=== PATIENT | male | born 1980 | race Caucasian/White ===

== ENCOUNTER 2016-06-01 14:28 | Emergency (ER) | payer OTHER ==
[~2016-06-01] VITALS: Ht 180.3 cm; Wt 92.0 kg
[2016-06-01 14:30] VITALS: TEMP 36.8; Ht 180.3 cm; Wt 92.0 kg
[2016-06-01 15:13] VITALS: O2SAT 100
[2016-06-01 15:31] LABS: BASO % 0.9 %; BASO ABS # 0.07 K/uL (0-0.2); COMPLETE YES; EOS % 0.8 %; IG% 0.3 %; LYMPH % 32.1 %; LYMPH ABS # 2.53 K/uL (1.2-3.4); MEAN CELL VOLUME 88.1 fL (80-100); MEAN CORPUSCULAR HEMOGLOBIN 31.7 pg (25-34); MEAN PLATELET VOLUME 11.2 fL (7.4-10.4); MONO % 5.6 %; NEUT % 60.3 %; PLATELET COUNT 219 K/uL (130-400); RED BLOOD COUNT 5.11 M/uL (4.7-6.1); WHITE BLOOD COUNT 7.88 K/uL (4.8-10.8)
[2016-06-01 15:37] LABS: BUN/CREATININE RATIO 9.4 (10-20); CALCIUM 9.1 mg/dl (8.5-10.1); MAGNESIUM 2.5 mg/dl (1.8-2.4); POTASSIUM 3.6 mmol/L (3.5-5.1)
--- NOTE | 2016-06-01 15:38 | EMERGENCY ROOM VISIT NOTE ---
History First contact with patient: 15:05 Chief Complaint: RESPIRATORY PROBLEMS Stated Complaint: SHALLOW BREATHING, TIGHT CHEST, LT SHOULDER PAIN Nursing Triage Summary: woke up this morning having troubles breathing. pain in left shoulder. body aches. family has recently had stomach flu recently stopped smoking. had wisdom teeth extracted 3-4 weeks ago History of Present Illness The patient is a 36 year old male who presents to the Emergency Department by private vehicle for evaluation of his shallow breathing, difficulty with breathing, LEFT shoulder pain, and tingling into the bilateral hands and fingers. The patient reports that he developed the symptoms of shallow breathing shortly after scolding his child for not eating his breakfast. He reports that while at work he noticed persistent shallow breathing as well as occasional episodes of pain into the LEFT shoulder. He has had some mild shortness of breath. He hasn't noticed any symptoms that have worsened on exertion, however. After the symptoms had been ongoing for a while, the patient has noticed numbness and tingling into the bilateral hands and fingers. He has not experienced this previously. The patient denies any pain at this time rating his discomfort a 0/10. He reports a history of GERD for which he is treated with omeprazole. He has no history of hypertension or coronary artery disease. His mother did pass away from a heart attack in April 2015 at the age of 61. He denies any other family history of cardiac disease otherwise. The patient denies any headaches, dizziness, neck pain/stiffness, palpitations, nausea, vomiting, hematochezia, melena, hematuria, or dysuria. Review of Systems A complete 10-point Review of Systems was discussed with the patient, with pertinent positives and negatives listed in the History of Present Illness. All remaining Review of Systems questions can be considered negative unless otherwise specified. Social History Smoking Status: Current Every Day Smoker Smokeless Tobacco Use: No Alcohol Use: occasionally Drug Use: none Marital Status: Housing Status: lives with family Occupation Status: employed Current/Historical Medications Scheduled Omeprazole (Prilosec), 20 MG PO DAILY Allergies Coded Allergies: No Known Allergies (Unverified , 06/01/16) Physical Exam Vital Signs Date Time Temp Pulse Resp B/P Pulse Ox O2 Delivery O2 Flow Rate FiO2 06/01/16 18:16 67 16 135/93 95 Room Air 06/01/16 16:38 71 16 136/88 98 Room Air 06/01/16 15:26 71 18 148/102 100 Room Air 06/01/16 15:16 91 06/01/16 15:13 100 Room Air 06/01/16 14:33 99 Room Air 06/01/16 14:30 36.8 95 18 150/103 99 Room Air Pain Rating (0-10): 0 Physical Exam VITAL SIGNS - Vital signs and nursing notes were reviewed. GENERAL - 36-year-old male appearing his stated age who is in no acute distress. Communicates well with provider and answers questions appropriately. LUNGS - Chest wall symmetric without accessory muscle use, intercostals retractions, or central cyanosis. Normal vesicular breath sounds CTA B/L. No wheezes, rales, or rhonchi appreciated. CARDIAC - RRR with S1/S2. No murmur, rubs, or gallops appreciated. No reproducible tenderness to palpation appreciated over the anterior chest wall. ABDOMEN - Abdominal contour flat and without pulsations or visible masses. BS normoactive all four quadrants. No tenderness, palpable masses, hepatosplenomegaly, or ascites noted. EXTREMITIES - No clubbing or peripheral cyanosis. No pretibial edema present. +3 /5 radial and dorsalis pedis pulses palpated throughout. +5/5 strength noted in UE/LE bilaterally. NEUROLOGIC - Cranial nerves II through XII grossly intact. Sensory intact to light touch throughout. PSYCH - A&Ox3 and cooperates fully with examiner. Pt is very pleasant and interacts well with examiner. Medical Decision & Procedures ER Provider Diagnostic Interpretation: Radiological imaging and reports were reviewed by myself. Radiologist's Interpretation as follows: CHEST ONE VIEW PORTABLE CLINICAL HISTORY: cp dyspnea COMPARISON STUDY: No previous studies for comparison. FINDINGS: The bones soft tissues and hemidiaphragms are normal. The cardiomediastinal silhouette is normal. The lungs are clear. The pulmonary vasculature is normal. IMPRESSION: Negative chest. Laboratory Results 06/01/16 15:13 Red Blood Count 5.11, Mean Corpuscular Volume 88.1, Mean Corpuscular Hemoglobin 31.7, Mean Corpuscular Hemoglobin Concent 36.0, Mean Platelet Volume 11.2, Neutrophils (%) (Auto) 60.3, Lymphocytes (%) (Auto) 32.1, Monocytes (%) (Auto) 5.6, Eosinophils (%) (Auto) 0.8, Basophils (%) (Auto) 0.9, Neutrophils # (Auto) 4.76, Lymphocytes # (Auto) 2.53, Monocytes # (Auto) 0.44, Eosinophils # (Auto) 0.06, Basophils # (Auto) 0.07 06/01/16 15:13 Test 06/01/16 15:13 06/01/16 15:28 06/01/16 17:10 White Blood Count 7.88 K/uL (4.8-10.8) Red Blood Count 5.11 M/uL (4.7-6.1) Hemoglobin 16.2 g/dL (14.0-18.0) Hematocrit 45.0 % (42-52) Mean Corpuscular Volume 88.1 fL (80-100) Mean Corpuscular Hemoglobin 31.7 pg (25-34) Mean Corpuscular Hemoglobin Concent 36.0 g/dl (32-36) Platelet Count 219 K/uL (130-400) Mean Platelet Volume 11.2 fL (7.4-10.4) Neutrophils (%) (Auto) 60.3 % Lymphocytes (%) (Auto) 32.1 % Monocytes (%) (Auto) 5.6 % Eosinophils (%) (Auto) 0.8 % Basophils (%) (Auto) 0.9 % Neutrophils # (Auto) 4.76 K/uL (1.4-6.5) Lymphocytes # (Auto) 2.53 K/uL (1.2-3.4) Monocytes # (Auto) 0.44 K/uL (0.11-0.59) Eosinophils # (Auto) 0.06 K/uL (0-0.5) Basophils # (Auto) 0.07 K/uL (0-0.2) RDW Standard Deviation 41.1 fL (36.4-46.3) RDW Coefficient of Variation 12.8 % (11.5-14.5) Immature Granulocyte % (Auto) 0.3 % Immature Granulocyte # (Auto) 0.02 K/uL (0.00-0.02) Prothrombin Time 10.0 SECONDS (9.0-12.0) Prothromb Time International Ratio 0.9 (0.9-1.1) Activated Partial Thromboplast Time 29.0 SECONDS (21.0-31.0) Partial Thromboplastin Ratio 1.1 Anion Gap 10.0 mmol/L (3-11) Est Creatinine Clear Calc Drug Dose 119.5 ml/min Estimated GFR () 112.5 Estimated GFR (Non- 97.1 BUN/Creatinine Ratio 9.4 (10-20) Calcium Level 9.1 mg/dl (8.5-10.1) Magnesium Level 2.5 mg/dl (1.8-2.4) Total Bilirubin 0.2 mg/dl (0.2-1) Aspartate Amino Transf (AST/SGOT) 20 U/L (15-37) Alanine Aminotransferase (ALT/SGPT) 70 U/L (12-78) Alkaline Phosphatase 58 U/L (45-117) Total Creatine Kinase 100 U/L (39-308) Creatine Kinase MB 0.7 ng/ml (0.5-3.6) Creatine Kinase MB Ratio 0.7 (0-3.0) Total Protein 7.7 gm/dl (6.4-8.2) Albumin 4.2 gm/dl (3.4-5.0) Globulin 3.5 gm/dl (2.5-4.0) Albumin/Globulin Ratio 1.2 (0.9-2) Lipase 235 U/L (73-393) Thyroid Stimulating Hormone (TSH) 1.890 uIu/ml (0.300-4.500) Bedside D-Dimer 75 ng/mlFEU (0-450) Bedside Troponin I 0.000 ng/ml (0-0.045) Medications Administered Medications (Trade) Dose Ordered Sig/Brijesh Route Start Time Stop Time Status Last Admin Dose Admin Lorazepam (Ativan Tab) 0.5 mg NOW STAT SL 06/01/16 16:22 06/01/16 16:23 DC 06/01/16 16:38 0.5 MG Procedure Patient was placed on the clinical research monitor and monitored throughout the entire extent of their stay. In addition, the patient's pulse oximetry was monitored throughout the entire stay. Any abnormalities or aberrancies were addressed appropriately. ECG Indication: chest pain, SOB/dyspnea Rate (beats per minute): 80 Rhythm: sinus with SA Findings: no acute ischemic change, no ectopy Comparison ECG Date: no prior available ED Course Patient was seen and evaluated by myself. Labs were drawn, saline lock in place. EKG and chest x-rays were obtained. Laboratory results demonstrate no acute leukocytosis, worrisome anemia, or bandemia. The patient has no significant electrolyte abnormalities. Cardiac enzymes are negative. EKG and chest x-rays are unremarkable. Troponin is negative. D-dimer was not elevated. On review the patient, he reports that he still has occasional tingling in his fingers and feet as well as some tightness in his chest. I had a lengthy conversation with the patient and his regarding symptoms. He was offered Ativan as well as repeat troponin. He did well with the Ativan and reports that he no longer has the tingling in the hands or feet. He does say that he still has some heaviness in his chest, however. His repeat troponin is completely negative. Laboratory results and imaging studies were reviewed with the patient who acknowledges understanding. He was encouraged to make a follow- up appointment later this week with his primary care provider. He was educated on worrisome symptoms for return visit to the emergency department. Patient discharged home afebrile and in good condition. Medical Decision Given the patient's presentation and stated complaints, I did elect to perform the above-mentioned workup. The patient presents today after experiencing some tightness in his chest as well as shallow breathing. He has no fever. He has not been ill recently. There is no leukocytosis. Chest x-rays complete unremarkable. EKG demonstrates no acute findings. He does admit to a moderate amount of caffeine use. In addition, he is complaining of paresthesias in the hands and feet. This did resolve after an oral dose of Ativan. I suspect that the patient may be experiencing a sensation of chest heaviness which has subsequently resulted in some anxiety component to his symptoms. He admits to significant amount of stress recently. His cardiac enzymes are negative 2. This makes cardiac etiology much less likely. His d-dimer was not elevated making PE much less likely as well. Certainly this may be an early onset of a viral upper respiratory infection as well. This was discussed with the patient a great length as well. The patient was educated on all these findings. He was comfortable with disposition and plan. He'll follow-up with his primary care provider this week for recheck. He will return to the emergency department in the setting of any changing or worsening symptoms. Patient discharged home afebrile and in good condition. In the evaluation and treatment of this patient, the following differential diagnoses were considered: HI, ASC, Dysrhythmia, Angina, Mediastinitis, GERD, Esophagitis, PE, Pneumonia, Bronchitis, Costochondritis, Rib Fracture, Zoster. Impression Primary Impression: Chest tightness Additional Impressions: Shallow breathing, Carpopedal spasm Departure Information Dispostion Home / Self-Care Condition GOOD Referrals Tone Knox M.D.([facility]) (PCP) Patient Instructions A Signature Page, [facility] Additional Instructions You have been treated in the Emergency Department for your Non-Cardiac Chest Pain. Laboratory results and Imaging Studies have ruled out any cardiac or pulmonary cause of your chest pain. For pain control, you can use the following [id number] medicines (if >12 yo): - Regular strength (325mg/tab) Tylenol (acetaminophen) 2 tabs every 4-6 hours as needed. Do not exceed 12 tablets in a 24 hour period. Avoid taking more than 4 grams (4000 mg) of Tylenol per day. This includes any other sources of acetaminophen you may take on a regular basis. - Regular strength (200 mg/tab) Advil (ibuprofen) 1-2 tabs every 4-6 hours as needed. Do not exceed a dose of 3200 mg per day. You should schedule a follow-up appointment with your Primary Care Provider in 2 -3 days for further evaluation from today's Emergency Department visit. Return to the Emergency Department if your current symptoms worsen despite treatment course outlined above, or if you develop any of the following symptoms : worsening chest pain, associated jaw/arm pain, nausea, dizziness, shortness of breath, bloody cough, or fainting.
[2016-06-01 15:39] LABS: INR 0.9 (0.9-1.1); PARTIAL THROMBOPLASTIN RATIO 1.1
[2016-06-01] MEDS ORDERED: PRLSR20 PO (15:40)
--- NOTE | 2016-06-01 15:44 | DIAGNOSTIC IMAGING REPORT ---
CHEST ONE VIEW PORTABLE CLINICAL HISTORY: cp dyspnea COMPARISON STUDY: No previous studies for comparison. FINDINGS: The bones soft tissues and hemidiaphragms are normal. The cardiomediastinal silhouette is normal. The lungs are clear. The pulmonary vasculature is normal. IMPRESSION: Negative chest. Electronically signed by: Kyle Dior M.D. 06/01/2016 3:42 PM
[2016-06-01 15:48] LABS: ALB/GLOB RATIO 1.2 (0.9-2); CKMB/CK RATIO 0.7 (0-3.0); THYROID STIMULATING HORMONE 1.89 uIu/ml (0.300-4.500)
[2016-06-01] MEDS ORDERED: LORAZEPAM 0.5 MG TAB SL STA (16:22)
[2016-06-01 18:16] VITALS: BP 135/93; PULSE 67; O2SAT 95
== END 2016-06-01 18:20 | disposition home or self-care (01) ==
LOC: C.EDB 14:31 → C.EDC 18:20
DX: R07.89 Other chest pain (principal); R29.0 Tetany; K21.9 Gastro-esophageal reflux disease without esophagitis; F17.210 Nicotine dependence, cigarettes, uncomplicated